=== PATIENT | female | born 1975 | race Two or more races ===

== ENCOUNTER 2024-02-22 11:01 | Outpatient (CLI) | payer OTHER | END 2024-02-22 11:10 | disposition home or self-care (01) | LOC: MAMO-SONO 11:01 | PROVIDERS: ATTEND Obstetrics & Gynecology Gynecology | DX: N64.4 Mastodynia (principal); Z12.31 Encounter for screening mammogram for malignant neoplasm of breast ==

== ENCOUNTER 2024-02-23 07:55 | Outpatient (CLI) | payer OTHER ==
[2024-02-23 08:39] LABS: HEMATOCRIT 34.9 % (36.0-45.00); HEMOGLOBIN 11.7 g/dL (12.0-15.00); MEAN CELL VOLUME 85.2 fL (80.00-100.00); MEAN CORPUSCULAR HEMOGLOBIN 28.5 pg (27.00-32.0); MEAN CORPUSCULAR HGB CONC 33.5 g/dl (32.0-36.0); PLATELET COUNT 194 K/uL (150-450)
[2024-02-23 09:37] LABS: ALBUMIN 3.7 gm/dL (3.4-5.0); BILIRUBIN TOTAL 0.36 mg/dL (0.3-1.2); CALCIUM 8.7 mg/dL (8.5-10.1); CHOL HDL RATIO 2.7 (0-5.0); CREATININE SERUM 0.79 mg/dL (0.55-1.02); FREE TRIODOTIRONINE 2.19 pg/ml (2.18-3.98); GFR 78.35; GLOBULINA 3.5 G/DL (2.4-3.5); POTASSIUM 3.97 mEq/L (3.5-5.1); T4 FREE 1.28 NG/ML (0.76-1.46); TOTAL PROTEIN 7.2 gm/dL (6.4-8.2); TSH 0.497 uIU/mL (0.358-3.74)
== END 2024-02-23 07:59 | disposition home or self-care (01) ==
LOC: LAB 07:55
PROVIDERS: ATTEND Obstetrics & Gynecology Gynecology
DX: E03.8 Other specified hypothyroidism (principal); E55.9 Vitamin D deficiency, unspecified; R94.5 Abnormal results of liver function studies; Z13.220 Encounter for screening for lipoid disorders; R73.9 Hyperglycemia, unspecified; R30.0 Dysuria; E78.2 Mixed hyperlipidemia; D51.8 Other vitamin B12 deficiency anemias; Z13.1 Encounter for screening for diabetes mellitus; Z12.11 Encounter for screening for malignant neoplasm of colon

== ENCOUNTER 2024-02-25 09:56 | Outpatient (CLI) | payer OTHER ==
[2024-02-25 10:36] LABS: ob NEGATIVE (NEGATIVE)
== END 2024-02-25 10:03 | disposition home or self-care (01) ==
LOC: LAB 09:56
PROVIDERS: ATTEND Obstetrics & Gynecology Gynecology
DX: E03.8 Other specified hypothyroidism (principal); E55.9 Vitamin D deficiency, unspecified; R94.5 Abnormal results of liver function studies; Z13.220 Encounter for screening for lipoid disorders; R73.9 Hyperglycemia, unspecified; R30.0 Dysuria; E78.2 Mixed hyperlipidemia; D51.8 Other vitamin B12 deficiency anemias; Z13.1 Encounter for screening for diabetes mellitus; Z12.11 Encounter for screening for malignant neoplasm of colon

== ENCOUNTER 2024-10-31 14:51 | Outpatient (CLI) | payer OTHER | END 2024-10-31 14:56 | disposition home or self-care (01) | LOC: MAMO-SONO 14:51 | DX: Z12.31 Encounter for screening mammogram for malignant neoplasm of breast (principal) ==

== ENCOUNTER 2024-11-01 07:13 | Outpatient (CLI) | payer OTHER ==
[2024-11-01 08:06] LABS: BASO % 0.5 % (0.1-1.2); EOS # 0.15 (0.04-0.54); EOS % 2.3 % (0.7-7.0); LYMPH # 1.39 (1.18-3.74); LYMPH % 21.0 % (19.3-53.1); MEAN PLATELET VOLUME 10.80 fl (9.4-12.4); MONO # 0.59 (0.24-0.82); MONO % 8.9 % (4.7-12.5); NEUT # 4.46 (1.56-6.13); NEUT % 67.1 % (34.0-71.1); RED CELL DISTRIBUTION WIDTH 14.2 % (11.6-14.4)
[2024-11-01 08:45] LABS: URINE APPEARANCE Clear; URINE BILIRRUBIN Negative (NEGATIVE); URINE BLOOD Negative; URINE COLOR Yellow; URINE GLUCOSE Negative (NEGATIVE); URINE KETONE Negative (NEGATIVE); URINE LEUKOCYTE Negative; URINE NITRATE Negative; URINE PROTEIN Negative (NEGATIVE); URINE UROBILINOGEN 0.2 E.U./dl
[2024-11-01 08:47] LABS: URINE BACTERIA 1574.3 uL (0.0-1933); URINE EPITHELIAL CELLS 48.6 uL (0.0-38.8); URINE RBC 21.9 uL (0.0-20.8); URINE WBC 12.7 uL (0.0-23.2)
[2024-11-01 08:59] LABS: CREATININE URINE RANDOM 169.0 MG/DL (30-125)
[2024-11-01 09:21] LABS: ALT/SGPT 19.0 U/L (12-78); AST/SGOT 15.0 U/L (15-37); BILIRUBIN TOTAL 0.27 mg/dL (0.3-1.2); BUN CREA RATIO 18.0 (7.0-25.0); CHOL HDL RATIO 2.3 (0-5.0); CREATININE SERUM 0.67 mg/dL (0.55-1.02); GFR 94.34; GLOBULINA 3.8 G/DL (2.4-3.5); GLUCOSE FASTING 76.0 mg/dL (65-100); HDL 69.0 mg/dl (40-60); LDL 77.0 mg/dl (0-130); OSMOLALITY SERUM 274.0 MOSM/KG (275-295); T4 FREE 1.16 NG/ML (0.76-1.46); TSH 0.606 uIU/mL (0.358-3.74); VLDL 15.0 (0-39)
[2024-11-01 09:25] LABS: URINE CAST 0.00 uL (0.0-1.40)
== END 2024-11-01 07:17 | disposition home or self-care (01) ==
LOC: LAB 07:13
DX: D64.9 Anemia, unspecified (principal); E88.89 Other specified metabolic disorders; E78.5 Hyperlipidemia, unspecified; E55.9 Vitamin D deficiency, unspecified; R30.0 Dysuria; E03.9 Hypothyroidism, unspecified; Z12.11 Encounter for screening for malignant neoplasm of colon; E11.69 Type 2 diabetes mellitus with other specified complication; Z12.5 Encounter for screening for malignant neoplasm of prostate; N18.9 Chronic kidney disease, unspecified; R80.9 Proteinuria, unspecified

== ENCOUNTER 2024-12-06 08:06 | Outpatient (CLI) | payer OTHER | END 2024-12-06 08:12 | disposition home or self-care (01) | LOC: SONOGRAMA 08:06 | DX: E04.2 Nontoxic multinodular goiter (principal) ==